=== PATIENT | female | born 1955 | race Caucasian/White ===

== ENCOUNTER 2017-12-19 22:47 | Emergency (ER) | payer MEDICARE, SELFPAY ==
[2017-12-19 22:48] VITALS: BP 160/106; PULSE 84; RESP 20; TEMP 36.7; O2SAT 93; BMI 41.9
[2017-12-19 23:27] LABS: Absolute Lymphocyte Count 2.51 X10^3/ul (0.83-4.51); Basophil# 0.05 X10^3/uL; Basophil% 0.7 % (0-1); Eosinophil# 0.11 X10^3/uL; Eosinophils% 1.5 % (0-5); Hematocrit 39.3 % (37-47); Hemoglobin 12.3 g/dl (12.0-15.0); Lymphocyte # 2.51 X10^3/ul (4.0); Lymphocyte % 34.4 % (19-41); Mean Corp Hgb Conc 31.3 g/gl (32-36); Mean Corpuscular Hgb 25.7 pg (27.0-32.0); Mean Corpuscular Volume 82.2 fL (81-99); Mean Platelet Vol. 11.2 fl (6.2-12.0); Monocyte# 0.56 X10^3/uL; Monocyte% 7.7 % (0-10); Neutrophil # 4.03 X10^3/uL (2.7-7.7); Neutrophil % 55.3 % (47-70); Platelet Count 308 K/mm3 (150-450); RBC Distribution Width SD 44.7 fl (35.1-43.9); Red Blood Count 4.78 M/mm3 (4.2-5.4); White Blood Count 7.3 K/mm3 (4.4-11.0)
[2017-12-19 23:31] LABS: International Normalized Ratio 0.9; POSITIVE COUNT NO; POSITIVE DIFFERENTIAL NO; POSITIVE MORPHOLOGY NO; Prothrombin Time (Protime)PT. 12.1 SECONDS (11.7-14.9)
[2017-12-19 23:32] LABS: Partial Thromboplast Time 29.3 Seconds (24.1-36.2)
[2017-12-19 23:37] LABS: Anion Gap 8 (5-15); BUN 17 mg/dL (7-18); BUN/Creat Ratio 17.3 RATIO (10-20); Calcium,Total 9.2 mg/dL (8.5-10.1); Chloride 105 mmol/L (98-107); Creatinine, Serum 0.98 mg/dL (0.55-1.02); EST Glomerular Filtration Rate 61 mL/min (>60); Est Glom Filt Rate - Afr Amer 74 mL/min (>60); Estimated Creatinine Clearance 45.49 ml/min; Glucose 101 mg/dL (74-106); Potassium 3.7 mmol/L (3.5-5.1); Sodium Level 144 mmol/L (136-145)
--- NOTE | 2017-12-19 23:40 | RAD_ITS ---
STUDY: X-RAY - ABDOMEN/PELVIS REASON FOR EXAM: Female, 62 years old. Documentation of nasogastric tube placement. TECHNIQUE: Three AP supine views of the abdomen and pelvis. COMPARISON: Prior comparison studies are not available for review at this time. FINDINGS: Normal visualized lung bases. There is an unremarkable bowel gas pattern. The enteric tube is present. Distal end appears to be coiled probably within a hiatal hernia in the chest. There is no obvious organomegaly, mass, dilated bowel or pathologic calcifications. Normal soft tissue structures. Normal visualized osseous structures. RAD/Abdomen Single View (Portable) IMPRESSION: The tip of the enteric tube is located in the chest, probably in a hiatal hernia. Electronically Signed: Flory Negrete MD at 0:08 EDT , Service support ,
--- NOTE | 2017-12-20 00:11 | ED.DCSUM_ITS ---
- ER Visit Summary Date of Service: 12/20/17 Chief Complaint: Vomiting ?3 with what appeared to be blood/coffee grounds History of Present Illness: The patient is a 62 F with history of peptic ulcer disease who presents with what she believes to be hematemesis and coffee grounds. She vomited 3 times. She denies any black or bloody stools. She denies orthostatic symptoms. She complains of heartburn. She denies any chest pain, palpitations or rapid heart rate. She denies cough, shortness of breath or dyspnea on exertion. She is on no antiplatelet or anticoagulant. She has no other complaints please read written note Patient has past history of peptic ulcer disease. She is status post cholecystectomy and thyroidectomy. Physical Examination: Vital signs are marked for an elevated blood pressure 160/ 100. She is not tachycardic or tachypneic. HEENT is unremarkable with pink conjunctivae. Heart is regular without murmur, gallop or rub. S1 and S2 are normal. Lungs are clear to auscultation with good movement of air bilaterally. Abdomen reveals minimal epigastric discomfort. Bowel sounds are present normal. She is alert oriented with a nonfocal neurologic exam. Test Results: CBC and BMP are normal. One expected elevated BUN to creatinine ratio. Coags are normal. NG was placed and there is no blood or coffee-ground material. There is gastric contact noted. Emergency Department Course and Treatment: To evaluate patient's complaint of possible hematemesis/coffee-ground emesis blood work was obtained and NG was placed. Abdominal x-ray reveals NG to be in proper position. Treatment Plan: Since patient has no active bleeding blood work is normal and she is hemodynamically stable to be discharged home to follow-up with Dr. Galarza Disposition: Discharged home Impression: Nausea and vomiting History of peptic ulcer disease This note was generated with [employer]um[employer] software. It may contain incorrect words, spelling, and punctuation that were not noted in review of the chart prior to signing ED Disposition - Plan for ED Patient: Disposition: Home or Assisted Living Chief Complaint: Nausea/Vomiting Instructions: ED Nausea Vomiting Referrals: Earl Galarza MD [Primary Care Provider] - As Needed
[2017-12-20] MEDS: Famotidine 20 MG Tablet 40 MG PO (00:35)
[2017-12-20 00:36] VITALS: BP 184/93; PULSE 74; RESP 16; O2SAT 100
== END 2017-12-20 00:37 | disposition home or self-care (01) ==
PROVIDERS: Emergency Provider Emergency Medicine; Family Provider Family Medicine; PCP Family Medicine
DX: R11.2 Nausea with vomiting, unspecified (principal); F41.9 Anxiety disorder, unspecified; I73.9 Peripheral vascular disease, unspecified; Z87.11 Personal history of peptic ulcer disease; Z90.49 Acquired absence of other specified parts of digestive tract; R03.0 Elevated blood-pressure reading, without diagnosis of hypertension; R12 Heartburn
CPT/HCPCS: 74018; 80048; 85025; 85610; 85730; 86850; 86900; 99285; A4216

== ENCOUNTER 2020-12-07 05:58 | Emergency (ER) | payer MEDICARE, MEDICAID, SELFPAY ==
[2020-12-07 06:00] VITALS: BP 194/94; PULSE 71; RESP 16; TEMP 36.6; O2SAT 99; BMI 47.9
--- NOTE | 2020-12-07 06:38 | ED.VIS.GEN ---
History of Present Illness Chief Complaint: Female C/O Informant: Patient Onset: Days Context: Gradual Onset Narrative: Patient is 65-year-old female with a history of degenerative disc disease presenting with worsening back pain as well as vaginal pressure and fullness. Patient states yesterday she carried in the groceries which she knows she is nonspecific because of her back. She is on meloxicam for it. She is having pain in her left lower back. She also notes that the past few days she has had fullness in her vagina. She states she feels like there is a bulge falling out. In addition she has had some associated constipation. She states she had a small hard bowel movement just prior to arrival. She has been straining to go. She denies any dysuria but has had some frequency of urination. She denies any saddle anesthesia. She denies any new incontinence. No weakness of the legs. No pain rating down her legs. No new injury. Patient woke up because of her back pain around 2:30 AM which is what triggered her to come to the emergency room. No other complaints at this time. Only abdominal surgery is a tubal ligation. Past Medical History - Allergies and Home Meds Allergies/Adverse Reactions: Allergies esomeprazole magnesium [From Nexium] Allergy (Verified 12/19/17 22:49) Rash fluconazole [From Diflucan] Allergy (Verified 12/19/17 22:49) Rash omeprazole [From Prilosec] Allergy (Verified 12/19/17 22:49) Rash omeprazole magnesium [From Prilosec] Allergy (Verified 12/19/17 22:49) Rash Primary Care Physician: Earl Galarza MD [Primary Care Provider] - Past Medical History: - - GERD, hypothyroid, hyperlipidemia, degenerative disc disease Surgical History: - - Tubal ligation Lives: Alone Smoking Status: Never smoker Review of Systems General: Denies: Chills, Fever, Sweats Eyes: Denies: Visual changes - bilaterally, Diplopia ENT: Denies: Rhinorrhea, Sore throat Cardiovascular: Denies: Chest pain, Palpitations Respiratory: Denies: Dyspnea, Cough, Dyspnea on exertion Gastrointestinal: Reports: Constipation. Denies: Abdominal pain, Nausea, Vomiting, Diarrhea, Melena, Hematochezia Genitourinary: Reports: Frequency, - - Vaginal pressure. Denies: Dysuria, Hematuria Musculoskeletal: Reports: Back pain. Denies: Extremity Pain Skin: Denies: Rash, Wounds Neurological: Denies: Headache, Weakness, Numbness Physical Exam Vital Signs/Narrative: Vital Signs Temp Pulse Resp BP Pulse Ox 12/07/20 06:00 97.9 F 71 16 194/94 H 99 Inital Vital Signs reviewed: Yes General: Well nourished, Well developed, Obese, No Acute Distress Head: Normocephalic, Atraumatic Eyes: Perrl, EOMI ENT: Moist mucous membranes, No rhinorrhea Neck: Supple, Nontender Cardiovascular: Regular rate, Regular rhythm, No murmurs Respiratory: No distress, CTA bilaterally, Chest nontender Abdomen: Soft, Nondistended, Normal bowel sounds, No masses, Tender - Suprapubic region. Negative for: Guarding, Rebound tenderness : - - Normal external genitalia. Patient does have what appears to be a rectocele that is noticeable with bearing down Back: Nontender, Normal Inspection, - - No reproducible tenderness but patient points to her right lower back as her area of pain. Negative for: CVA tenderness, Spinal tenderness Extremities: Nontender, No edema Skin: Normal color, No rash Neurological: Alert, Oriented x3, Cranial nerves II-XII grossly intact, Normal Strength, Normal Sensation Psychological: Normal affect, Normal Mood Diagnostic/Tx/Re-eval Clinical Impression(s) from Imaging Studies Abdomen/Pelvis CT 12/07/20 07:05 IMPRESSION: 6.9 mm calculus at the right ureteral vesicle junction causing mild degree of right hydronephrosis and right hydroureter. Electronically Signed: Gerardo Estrada MD at 8:06 EDT , Service support , Laboratory Data 12/07/20 12/07/20 12/07/20 06:20 06:27 06:27 WBC 6.7 RBC 5.11 Hgb 11.8 L Hct 41.1 MCV 80.4 L MCH 23.1 L MCHC 28.7 L RDW Std Deviation 48.9 H RDW Coeff of Glo 17.0 H Plt Count 294 MPV 11.7 Immature Gran % (Auto) 0.100 Neut % (Auto) 60.9 Lymph % (Auto) 30.5 [place] % (Auto) 6.1 Eos % (Auto) 1.5 Baso % (Auto) 0.9 Absolute Neuts (auto) 4.1 Absolute Lymphs (auto) 2.05 Nucleated RBC % 0 Sodium 140 Potassium 3.8 Chloride 109 H Carbon Dioxide 26.0 Anion Gap 5 BUN 14 Creatinine 1.06 H Estim Creat Clear Calc 38.51 Est GFR (MDRD) Af Amer 67 Est GFR (MDRD) Non-Af 55 L BUN/Creatinine Ratio 13.2 Glucose 131 H Calcium 9.1 Total Bilirubin 0.30 AST 12 L ALT 23 Alkaline Phosphatase 115 Total Protein 6.9 Albumin 3.5 Globulin 3.4 Albumin/Globulin Ratio 1.0 Urine Color Yellow Urine Clarity Clear Urine pH 5.0 Ur Specific [place] 1.030 Urine Protein 30 H Urine Glucose (UA) Normal Urine Ketones Negative Urine Occult Blood 50 H Urine Nitrite Negative Urine Bilirubin Negative Urine Urobilinogen Normal Ur Leukocyte Esterase 500 H Urine RBC 0-5 SEEN Urine WBC 10-25 SEEN Ur Squamous Epith Cells 0-5 SEEN Calcium Oxalate Crystal 1+ Urine Bacteria 0 SEEN Urine Mucus 0 SEEN - Medical Decision Making Patient evaluated for back pain as well as discomfort in her suprapubic region as well as a pressure in her vagina. She does have a mild rectocele on exam. Patient is given IV morphine for pain control. She states it made her sleepy but did not really help with the pain. She is redosed with Toradol. Urinalysis shows leukoesterase but no bacteria or blood. Given her abdominal pain as well as inflammatory changes in the urine I did obtain CT of the abdomen and pelvis. This showed a 6.9 mm stone at the right UVJ. This likely is the cause of all of her symptoms. CBC is largely unremarkable. Patient's creatinine is 1.06 which is her baseline. Glucose is mildly elevated at 131. No other acute intra-abdominal process is seen. Patient would like to be discharged home. She is discharged home with Flomax, pain control and nausea control. She is given follow-up with urology as well as gynecology for her vaginal fracture. Patient is counseled on signs and symptoms requiring return to the emergency room. Patient verbalizes agreement and understand this plan. Patient discharged home in stable and improved condition. ED Disposition - Plan for ED Patient: Disposition: Home or Assisted Living Diagnosis: Hydronephrosis with renal and ureteral calculous obstruction Instructions: ED Kidney Stone w/ Colic Prescriptions: Tamsulosin HCl [Flomax] 0.4 mg PO DAILY #7 capsule Prescription Printed Ibuprofen [Motrin] 600 mg PO Q6H PRN PRN #20 tab PRN Reason: Pain 1-10 Or Fever Prescription Printed Hydrocodone Bitart/Apap 5-325 [[place] 5MG-325MG] 1 tablet PO Q6H PRN PRN 3 Days #12 tab PRN Reason: Pain Prescription Printed Ondansetron [Zofran Odt] 4 mg PO Q8H PRN PRN #10 tablet PRN Reason: Nausea Prescription Printed Referrals: Earl Galarza MD [Primary Care Provider] - Ra Car MD [STAFF PHYSICIAN] - Jazz Singh MD [STAFF PHYSICIAN] - Additional Instructions: You have a kidney stone that is about to pass on the right side. This is the cause of your pain. No findings consistent with constipation on your CT. No signs of infection. You have been referred to a urologist, Dr. Car, for further follow-up of your kidney stone. Please call his office today to schedule follow-up appointment in the next few days. Your stone is 6.9 mm and it might require a procedure to get it to pass. In addition I referred you to gynecology on-call for further evaluation of your vaginal pressure/discomfort. Please return to the emergency room if you have worsening symptoms, fever or you cannot get your pain under control with the medications prescribed today.
[2020-12-07 06:41] LABS: Absolute Lymphocyte Count 2.05 X10^3/uL (0.83-4.51); Absolute Neutrophil Count 4.1 X10^3/uL (2.0-7.7); Basophil# 0.06 X10^3/uL; Basophil% 0.9 % (0-1); Eosinophils% 1.5 % (0-5); Hematocrit 41.1 % (37-47); Hemoglobin 11.8 g/dL (12.0-15.0); Lymphocyte # 2.05 X10^3/ul (4.0); Lymphocyte % 30.5 % (19-41); Mean Corp Hgb Conc 28.7 g/dL (32-36); Mean Corpuscular Hgb 23.1 pg (27.0-32.0); Mean Corpuscular Volume 80.4 fL (81-99); Mean Platelet Vol. 11.7 fl (6.2-12.0); Monocyte# 0.41 X10^3/uL; Monocyte% 6.1 % (0-10); NRBC Flagged by Analyzer 0 % (0-5); Neutrophil % 60.9 % (47-70); Platelet Count 294 K/mm3 (150-450); RBC Distribution Width SD 48.9 fl (35.1-43.9); Red Blood Count 5.11 M/mm3 (4.2-5.4); White Blood Count 6.7 K/mm3 (4.4-11.0)
[2020-12-07] MEDS: 0.9% Normal Saline 1,000 ML 1000 ML IV (06:48)
[2020-12-07] MEDS: Morphine 4 MG/ML Syringe IV (06:48)
[2020-12-07 06:51] LABS: Bacteria 0 SEEN /hpf (None Seen); Mucous, Urine 0 SEEN /hpf (<or=2+)
[2020-12-07 06:53] LABS: Color, Urine Yellow (Yellow); Glucose, Dipstick Normal (Normal); Ketone-Dipstick Negative (Negative); Leukocyte Esterase-Dipstick 500 /ul (Negative); Nitrite-Dipstick Negative (Negative); Occult Blood-Urine 50 /ul (Negative); Protein-Dipstick 30 mg/dl (Negative); Urine Bilirubin Dipstick Negative (Negative); Urine Clarity Clear (Clear); Urine Urobilinogen Normal (Normal)
[2020-12-07 06:54] LABS: AST(SGOT) 12 U/L (15-37); Alanine Aminotransfer ALT/SGPT 23 U/L (13-56); Albumin, Serum 3.5 g/dL (3.2-5.0); Alkaline Phosphatase 115 U/L (45-117); Anion Gap 5 (5-15); BUN 14 mg/dL (7-18); BUN/Creat Ratio 13.2 RATIO (10-20); Calcium,Total 9.1 mg/dL (8.5-10.1); Chloride 109 mmol/L (98-107); Creatinine, Serum 1.06 mg/dL (0.55-1.02); EST Glomerular Filtration Rate 55 mL/min (>60); Est Glom Filt Rate - Afr Amer 67 mL/min (>60); Estimated Creatinine Clearance 38.51 ml/min; Globulin 3.4 g/dL (2.2-4.2); Glucose 131 mg/dL (74-106); Potassium 3.8 mmol/L (3.5-5.1); Protein, Total 6.9 g/dL (6.4-8.2); Sodium Level 140 mmol/L (136-145)
[2020-12-07 06:57] LABS: Calcium Oxalate Crystals Ur 1+ /hpf (<or=2+); Red Blood Cells-Urine 0-5 SEEN /hpf (0-5); Squamous Epithelial Cells - UA 0-5 SEEN /hpf (5-10); White Blood Cells 10-25 SEEN /hpf (0-5)
--- NOTE | 2020-12-07 07:05 | CT_ITS ---
STUDY: CT ABDOMEN AND PELVIS WITH CONTRAST REASON FOR EXAM: Fatty infiltration of the liver. Status post cholecystectomy. Moderate sized hiatal hernia., 65 years old. Abdominal pain. Pelvic pressure. RADIATION DOSAGE (If Supplied By Facility): CTDIvol = ( 15.29 ) mGy, DLP = ( 1246.14 ) mGycm TECHNIQUE: Transaxial images were obtained from the dome of the diaphragm to the symphysis pubis without oral contrast. IV 100mL Isovue-300 was administered. Sagittal and coronal images were reconstructed. Individualized dose optimization techniques were used for this CT. COMPARISON: None. FINDINGS: Mild degree of increased markings at the lung bases slightly more prominent on the left side. The visualized portions of the heart are within normal limits. There is decreased attenuation of the liver consistent with steatosis. Mild degree of intrabiliary air in the left biliary radicals most likely secondary to the prior cholecystectomy. The patient is status post cholecystectomy. Normal spleen. There is diffuse atrophy of the pancreas. Normal bilateral adrenal glands. There is a mild degree of a right hydronephrosis and right hydroureter due to a 6.9 mm calculus at the right ureterovesical junction. Normal left kidney. There is a moderate-sized hiatal hernia. Normal small intestine. There are multiple colonic diverticula consistent with diverticulosis. The appendix is visualized and appears normal. There is scattered atherosclerotic calcification of the abdominal aorta, without a demonstrated aneurysm. Normal inferior vena cava. Normal retroperitoneum. Normal urinary bladder. Normal abdominal wall. There are diffuse degenerative changes of the visualized lumbar spine. CT/Abdomen/Pelvis W IV Cont ONLY IMPRESSION: 6.9 mm calculus at the right ureteral vesicle junction causing mild degree of right hydronephrosis and right hydroureter. Electronically Signed: Gerardo Estrada MD at 8:06 EDT , Service support ,
[2020-12-07] MEDS: Ketorolac 15 MG/ML Vial IV (07:53)
[2020-12-07 08:31] VITALS: BP 181/98; PULSE 72; RESP 16; O2SAT 96
== END 2020-12-07 08:34 | disposition home or self-care (01) ==
PROVIDERS: Emergency Provider Emergency Medicine; PCP Family Medicine
DX: N13.2 Hydronephrosis with renal and ureteral calculous obstruction (principal); N81.6 Rectocele; K21.9 Gastro-esophageal reflux disease without esophagitis; E03.9 Hypothyroidism, unspecified; E78.5 Hyperlipidemia, unspecified; Z88.3 Allergy status to other anti-infective agents; Z90.49 Acquired absence of other specified parts of digestive tract
CPT/HCPCS: 74177; 80053; 81001; 85025; 96361; 96374; 96375; 99283; J7030; Q9967; A4216

== ENCOUNTER 2020-12-08 10:44 | Day surgery (SDC) | payer MEDICARE, MEDICAID, SELFPAY ==
[2020-12-07 06:00] VITALS: BMI 47.9
[2020-12-08] VITALS (7 sets, daily range): BP systolic 106–178; BP diastolic 72–99; PULSE 65–87; RESP 16–18; TEMP 35.4–36.6; O2SAT 94–98; BMI 48.1
--- NOTE | 2020-12-08 11:07 | ED.VIS.GEN ---
History of Present Illness Chief Complaint: Flank Pain Informant: Patient Narrative: 65-year-old female presents to the emergency department with right flank and abdominal pain. She states that yesterday she was diagnosed with a 6.9 mm kidney stone. Review of the CT shows that it is a 6.9 mm UVJ stone. She states that she was doing okay with the pain medication to this morning when the pain intensified. She states that she feels extremely nauseous. She states she called urology and was told that they do not take her Medicaid. She tells me that she was going to try to call somebody else but the pain was worse. Past Medical History - Allergies and Home Meds Allergies/Adverse Reactions: Allergies esomeprazole magnesium [From Nexium] Allergy (Verified 12/08/20 10:45) Rash fluconazole [From Diflucan] Allergy (Verified 12/08/20 10:45) Rash omeprazole [From Prilosec] Allergy (Verified 12/08/20 10:45) Rash omeprazole magnesium [From Prilosec] Allergy (Verified 12/08/20 10:45) Rash Primary Care Physician: Earl Galarza MD [Primary Care Provider] - Past Medical History: - - Hypothyroidism dyslipidemia Surgical History: - - Tubal ligation Smoking Status: Never smoker Drugs: None Review of Systems General: Denies: Chills, Fever, Sweats Eyes: Denies: Visual changes - bilaterally, Diplopia ENT: Denies: Rhinorrhea, Sore throat Cardiovascular: Denies: Chest pain, Palpitations Respiratory: Denies: Dyspnea, Cough, Dyspnea on exertion Gastrointestinal: Reports: Abdominal pain. Denies: Nausea, Vomiting, Diarrhea, Melena, Hematochezia Genitourinary: Denies: Dysuria, Hematuria, Frequency Musculoskeletal: Reports: Back pain. Denies: Extremity Pain Skin: Denies: Rash, Wounds Neurological: Denies: Headache, Weakness, Numbness Physical Exam Vital Signs/Narrative: Vital Signs Temp Pulse Resp BP Pulse Ox 12/08/20 10:45 95.8 F L 87 18 168/99 H 98 Inital Vital Signs reviewed: Yes General: Obese, - - Patient appears uncomfortable pacing the floor holding an emesis bag Head: Normocephalic, Atraumatic Eyes: Perrl, EOMI ENT: Moist mucous membranes, No rhinorrhea Neck: Supple, Nontender Cardiovascular: Regular rate, Regular rhythm, No murmurs Respiratory: No distress, CTA bilaterally, Chest nontender Abdomen: Soft, Nontender, Nondistended, Normal bowel sounds Back: Nontender, Normal Inspection Extremities: Nontender, No edema Skin: Normal color, No rash Neurological: Alert, Oriented x3, Cranial nerves II-XII grossly intact, Normal Strength, Normal Sensation Psychological: Normal affect, Normal Mood Diagnostic/Tx/Re-eval Laboratory Last Values WBC 5.9 K/mm3 (4.4-11.0) 12/08/20 11:25 RBC 4.96 M/mm3 (4.2-5.4) 12/08/20 11:25 Hgb 11.8 g/dL (12.0-15.0) L 12/08/20 11:25 Hct 39.6 % (37-47) 12/08/20 11:25 MCV 79.8 fL (81-99) L 12/08/20 11:25 MCH 23.8 pg (27.0-32.0) L 12/08/20 11:25 MCHC 29.8 g/dL (32-36) L 12/08/20 11:25 RDW Std Deviation 47.7 fl (35.1-43.9) H 12/08/20 11:25 RDW Coeff of Glo 16.7 % (11.6-14.6) H 12/08/20 11:25 Plt Count 281 K/mm3 (150-450) 12/08/20 11:25 MPV 11.0 fl (6.2-12.0) 12/08/20 11:25 Immature Gran % (Auto) 0.200 % (0.0-0.9) 12/08/20 11:25 Neut % (Auto) 63.3 % (47-70) 12/08/20 11:25 Lymph % (Auto) 28.8 % (19-41) 12/08/20 11:25 [place] % (Auto) 5.7 % (0-10) 12/08/20 11:25 Eos % (Auto) 1.2 % (0-5) 12/08/20 11:25 Baso % (Auto) 0.8 % (0-1) 12/08/20 11:25 Absolute Neuts (auto) 3.8 X10^3/uL (2.0-7.7) 12/08/20 11:25 Absolute Lymphs (auto) 1.71 X10^3/uL (0.83-4.51) 12/08/20 11:25 Nucleated RBC % 0 % (0-5) 12/08/20 11:25 Sodium 137 mmol/L (136-145) 12/08/20 11:25 Potassium 4.2 mmol/L (3.5-5.1) 12/08/20 11:25 Chloride 107 mmol/L (98-107) 12/08/20 11:25 Carbon Dioxide 23.0 mmol/L (21.0-32.0) 12/08/20 11:25 Anion Gap 7 (5-15) 12/08/20 11:25 BUN 13 mg/dL (7-18) 12/08/20 11:25 Creatinine 1.06 mg/dL (0.55-1.02) H 12/08/20 11:25 Estim Creat Clear Calc 38.51 ml/min 12/08/20 11:25 Est GFR (MDRD) Af Amer 67 mL/min (>60) 12/08/20 11:25 Est GFR (MDRD) Non-Af 55 mL/min (>60) L 12/08/20 11:25 BUN/Creatinine Ratio 12.3 RATIO (10-20) 12/08/20 11:25 Glucose 134 mg/dL (74-106) H 12/08/20 11:25 Calcium 8.9 mg/dL (8.5-10.1) 12/08/20 11:25 Urine Color Straw (Yellow) 12/08/20 12:09 Urine Clarity Sl. Cloudy (Clear) 12/08/20 12:09 Urine pH 5.0 (5.0 - 8.0) 12/08/20 12:09 Ur Specific [place] 1.030 (1.002-1.030) 12/08/20 12:09 Urine Protein 30 mg/dl (Negative) H 12/08/20 12:09 Urine Glucose (UA) Normal mg/dl (Normal) 12/08/20 12:09 Urine Ketones 5 mg/dl (Negative) H 12/08/20 12:09 Urine Occult Blood 25 /ul (Negative) H 12/08/20 12:09 Urine Nitrite Negative (Negative) 12/08/20 12:09 Urine Bilirubin 1 mg/dL (Negative) H 12/08/20 12:09 Urine Urobilinogen Normal mg/dl (Normal) 12/08/20 12:09 Ur Leukocyte Esterase 100 /ul (Negative) H 12/08/20 12:09 Urine RBC 0 SEEN /hpf (0-5) 12/08/20 12:09 Urine WBC 0-5 SEEN /hpf (0-5) 12/08/20 12:09 Ur Squamous Epith Cells 0-5 SEEN /hpf (5-10) 12/08/20 12:09 Ur Renal Epithelial Cell 0-5 SEEN /hpf (0-5) 12/08/20 12:09 Calcium Oxalate Crystal 2+ /hpf (<or=2+) 12/08/20 12:09 Amorphous Sediment 1+ 12/08/20 12:09 Urine Bacteria 1+ /hpf (None Seen) 12/08/20 12:09 Hyaline Casts 0-5 SEEN /lpf (0-5) 12/08/20 12:09 Urine Mucus 0 SEEN /hpf (<or=2+) 12/08/20 12:09 - Medical Decision Making White count is normal. Creatinine stable. Urinalysis negative for infection. Patient received morphine and Zofran. She is remained n.p.o. Her last solid food was last evening around 1700 hrs. and her last drink of water was around 1030 hours this morning. I spoke with Dr. Car who will add the patient onto the operating room schedule today. ED Disposition - Plan for ED Patient: Disposition: Acute Care Hospital [facility] Diagnosis: Right ureteral stone Referrals: Earl Galarza MD [Primary Care Provider] -
[2020-12-08 11:33] LABS: Absolute Lymphocyte Count 1.71 X10^3/uL (0.83-4.51); Absolute Neutrophil Count 3.8 X10^3/uL (2.0-7.7); Basophil# 0.05 X10^3/uL; Basophil% 0.8 % (0-1); Eosinophil# 0.07 X10^3/uL; Eosinophils% 1.2 % (0-5); Hematocrit 39.6 % (37-47); Hemoglobin 11.8 g/dL (12.0-15.0); Lymphocyte # 1.71 X10^3/ul (4.0); Lymphocyte % 28.8 % (19-41); Mean Corp Hgb Conc 29.8 g/dL (32-36); Mean Corpuscular Hgb 23.8 pg (27.0-32.0); Mean Corpuscular Volume 79.8 fL (81-99); Monocyte# 0.34 X10^3/uL; Monocyte% 5.7 % (0-10); NRBC Flagged by Analyzer 0 % (0-5); Neutrophil # 3.76 X10^3/uL (2.7-7.7); Neutrophil % 63.3 % (47-70); Platelet Count 281 K/mm3 (150-450); RBC Distribution Width CV 16.7 % (11.6-14.6); RBC Distribution Width SD 47.7 fl (35.1-43.9); Red Blood Count 4.96 M/mm3 (4.2-5.4); White Blood Count 5.9 K/mm3 (4.4-11.0)
[2020-12-08] MEDS: Ketorolac 15 MG/ML Vial IV (11:33)
[2020-12-08] MEDS: Morphine 4 MG/ML Syringe IV (11:33)
[2020-12-08] MEDS: Ondansetron 4 MG/2 ML Vial IV (11:33)
[2020-12-08] MEDS: 0.9% Normal Saline 1,000 ML 250 ML IV (11:34)
[2020-12-08 11:50] LABS: Anion Gap 7 (5-15); BUN 13 mg/dL (7-18); BUN/Creat Ratio 12.3 RATIO (10-20); Calcium,Total 8.9 mg/dL (8.5-10.1); Chloride 107 mmol/L (98-107); Creatinine, Serum 1.06 mg/dL (0.55-1.02); EST Glomerular Filtration Rate 55 mL/min (>60); Est Glom Filt Rate - Afr Amer 67 mL/min (>60); Estimated Creatinine Clearance 38.51 ml/min; Glucose 134 mg/dL (74-106); Potassium 4.2 mmol/L (3.5-5.1); Sodium Level 137 mmol/L (136-145)
[2020-12-08 12:17] LABS: Mucous, Urine 0 SEEN /hpf (<or=2+); Red Blood Cells-Urine 0 SEEN /hpf (0-5)
[2020-12-08 12:19] LABS: Color, Urine Straw (Yellow); Glucose, Dipstick Normal (Normal); Ketone-Dipstick 5 mg/dl (Negative); Leukocyte Esterase-Dipstick 100 /ul (Negative); Nitrite-Dipstick Negative (Negative); Occult Blood-Urine 25 /ul (Negative); Protein-Dipstick 30 mg/dl (Negative); Urine Clarity Sl. Cloudy (Clear); Urine Urobilinogen Normal (Normal)
[2020-12-08 12:20] LABS: Urine Bilirubin Dipstick 1 mg/dL (Negative)
[2020-12-08 12:28] LABS: Amorphous Sediment 1+; Bacteria 1+ /hpf (None Seen); Calcium Oxalate Crystals Ur 2+ /hpf (<or=2+); Hyaline Cast 0-5 SEEN /lpf (0-5); Renal Epithelial Cells 0-5 SEEN /hpf (0-5); Squamous Epithelial Cells - UA 0-5 SEEN /hpf (5-10); White Blood Cells 0-5 SEEN /hpf (0-5)
--- NOTE | 2020-12-08 14:43 | PCM.HP.STD ---
Problem List (1) Right ureteral stone Status: Acute History of Present Illness Date of Admission: 12/08/20 Chief Complaint: Right obstructing ureteral calculi The patient is a 65 year old female who presented a second time to the emergency room in severe pain from a distal large ureteral calculi so I offered the patient surgery and she is agreed to undergo surgery she understands there is a risk of injury to the ureter failure to get the stone out and needing more than 1 surgical procedure, failure to remove the stone and needing more surgery, she also understands the stent that Lizeth put in may cause a lot of irritation of the bladder pain discomfort pain with urination and burning with urination we will give her medications to deal with the stent the bladder discomfort and today working to proceed with surgery all her questions were addressed in the preoperative area. And she signed the consent form. We went over the consent form in detail. Past Medical History Allergies esomeprazole magnesium [From Nexium] Allergy (Verified 12/08/20 10:45) Rash fluconazole [From Diflucan] Allergy (Verified 12/08/20 10:45) Rash omeprazole [From Prilosec] Allergy (Verified 12/08/20 10:45) Rash omeprazole magnesium [From Prilosec] Allergy (Verified 12/08/20 10:45) Rash Home Medications: Ambulatory Orders Medication Instructions Recorded Acetaminophen [Tylenol] 500 mg PO Q8H PRN PRN 10/09/13 Levothyroxine [Synthroid] 150 mcg PO DAILY 10/09/13 Colesevelam Hydrochloride [Welchol] 3,750 mg PO DAILY@0800 12/16/15 Dexlansoprazole [Dexilant] 30 mg PO DAILY 12/19/17 Hydrocodone Bitart/Apap 5-325 1 tablet PO Q6H PRN PRN 3 Days #12 12/07/20 [[place] 5MG-325MG] tab Ibuprofen [Motrin] 600 mg PO Q6H PRN PRN #20 tab 12/07/20 Ondansetron [Zofran Odt] 4 mg PO Q8H PRN PRN #10 tablet 12/07/20 Tamsulosin HCl [Flomax] 0.4 mg PO DAILY #7 capsule 12/07/20 Surgical History: - - Tubal ligation Smoking Status: Former smoker Drugs: None Review of Systems Constitutional: Denies: Chills, Fever, Weight Change HEENT: Denies: Head Aches, Sinus Congestion, Sinus Drainage Cardiovascular: Denies: Chest Pain, Palpitations Respiratory: Denies: Cough, Shortness of breath at rest, Sputum production Gastrointestinal: Denies: Abdominal Pain, Nausea, Vomiting Genitourinary: Denies: Dysuria Musculoskeletal: Denies: Joint Pain, Joint Tenderness Skin: Denies: Rash, Wounds Neurological: Denies: Numbness, Tingling, Focal weakness Psychiatric: Denies: Anxiety, Depression, Homicidal Ideations, Suicidal Ideations Hematologic/ Lymphatic: Denies: Easy Bruising, Easy Bleeding VTE Information - Inpt Only VTE Present on Admission: No VTE Mechan Device Prophylaxis: SCD's Patient Problems: Active and Suspected Problems Right ureteral stone (Acute) - Physical Exam Vitals/I&O's: Vital Signs Temp Pulse Resp BP Pulse Ox 97.5 F L 65 18 178/76 H 98 12/08/20 13:00 12/08/20 13:00 12/08/20 13:00 12/08/20 13:00 12/08/20 13:00 Oxygen Delivery Method Room Air Weight: 111.8 kg Body Mass Index (BMI) 48.1 Intake and Output for Last 24 Hours 12/06/20 12/07/20 12/08/20 23:59 23:59 23:59 Intake Total 1000 / 1000 Balance 1000 / 1000 General: Alert, Oriented x3, Cooperative HEENT: Atraumatic, PERRLA, EOMI, Normocephalic Neck: Supple, No JVD, Negative Carotid Bruits Lungs: Clear to auscultation, Normal air movement Cardiovascular: Regular rate, No murmurs Abdomen: Bowel Sounds Present, Soft, Non Tender Extremities: No edema, Capillary Refill Less than 3 Seconds Skin: No rashes, No breakdown Musculoskeletal: No Tenderness to Palpation of Joints or Extremities Neurological: Cranial nerves II-XII grossly intact Psych/Mental Status: Normal Affect, Appropriate Laboratory Results 12/08/20 11:25: WBC 5.9, RBC 4.96, Hgb 11.8 L, Hct 39.6, MCV 79.8 L, MCH 23.8 L, MCHC 29.8 L, RDW Std Deviation 47.7 H, RDW Coeff of Glo 16.7 H, Plt Count 281, MPV 11.0, Immature Gran % (Auto) 0.200, Neut % (Auto) 63.3, Lymph % (Auto) 28.8, [place] % (Auto) 5.7, Eos % (Auto) 1.2, Baso % (Auto) 0.8, Absolute Neuts (auto) 3.8, Absolute Lymphs (auto) 1.71, Nucleated RBC % 0 12/08/20 11:25: Sodium 137, Potassium 4.2, Chloride 107, Carbon Dioxide 23.0, Anion Gap 7, BUN 13, Creatinine 1.06 H, Estim Creat Clear Calc 38.51, Est GFR (MDRD) Af Amer 67, Est GFR (MDRD) Non-Af 55 L, BUN/Creatinine Ratio 12.3, Glucose 134 H, Calcium 8.9 12/08/20 12:09: Urine Color Straw, Urine Clarity Sl. Cloudy, Urine pH 5.0, Ur Specific [place] 1.030, Urine Protein 30 H, Urine Glucose (UA) Normal, Urine Ketones 5 H, Urine Occult Blood 25 H, Urine Nitrite Negative, Urine Bilirubin 1 H, Urine Urobilinogen Normal, Ur Leukocyte Esterase 100 H, Urine RBC 0 SEEN, Urine WBC 0-5 SEEN, Ur Squamous Epith Cells 0-5 SEEN, Ur Renal Epithelial Cell 0-5 SEEN, Calcium Oxalate Crystal 2+, Amorphous Sediment 1+, Urine Bacteria 1+, Hyaline Casts 0-5 SEEN, Urine Mucus 0 SEEN Current Medications Sodium Chloride () 1,000 mls @ 250 mls/hr IV .Q4H [facility] Last Infusion: 12/08/20 14:33 Dose: Infused Documented by: Lactated Ringer's () 1,000 mls @ 100 mls/hr IV .Q10H [facility] Assessment/Plan All Active Problems Right ureteral stone (Acute) Plan to proceed with right ureteroscopy laser of stone and stent placement.
--- NOTE | 2020-12-08 14:46 | DCINST_ITS ---
Discharge Diet: No Restrictions Discharge Activity: Return to Normal Activity, May Not Drive - for 2 days. Additional Activity Instructions:: Please be aware that pain medications may cause nausea. You should typically eat light foods as you take your pain medication. Pain medication may cause constipation, if this is a problem for you, please discuss with your doctor. Allergies/Adverse Reactions: Allergies esomeprazole magnesium [From Nexium] Allergy (Verified 12/08/20 10:45) Rash fluconazole [From Diflucan] Allergy (Verified 12/08/20 10:45) Rash omeprazole [From Prilosec] Allergy (Verified 12/08/20 10:45) Rash omeprazole magnesium [From Prilosec] Allergy (Verified 12/08/20 10:45) Rash Medications to take at Discharge Acetaminophen [Tylenol] 500 mg PO Q8H PRN PRN 10/09/13 Levothyroxine [Synthroid] 150 mcg PO DAILY 10/09/13 Colesevelam Hydrochloride [Welchol] 3,750 mg PO DAILY@0800 12/16/15 Dexlansoprazole [Dexilant] 30 mg PO DAILY 12/19/17 Hydrocodone Bitart/Apap 5-325 [[place] 5MG-325MG] 1 tablet PO Q6H PRN PRN 3 Days #12 tab 12/07/20 Ibuprofen [Motrin] 600 mg PO Q6H PRN PRN #20 tab 12/07/20 Ondansetron [Zofran Odt] 4 mg PO Q8H PRN PRN #10 tablet 12/07/20 Tamsulosin HCl [Flomax] 0.4 mg PO DAILY #7 capsule 12/07/20 Ciprofloxacin [Cipro] 500 mg PO BID #10 tab 12/08/20 The following prescriptions were given: Ciprofloxacin [Cipro] 500 mg PO BID #10 tab Transmission Status: Pending to [facility] Primary Care Physician: Earl Galarza MD [Primary Care Provider] - Test Results: Test results from this visit will be discussed in further detail at your follow- up appointment, if applicable. Please Follow Up With: Ra Car MD - [phone] When: in 2 weeks, please call to make an appointment.
[2020-12-08] MEDS: Cefazolin 2 GM in 0.9% Normal Saline 100 ML IV (15:10)
--- NOTE | 2020-12-08 16:41 | OP.PCM_ITS ---
Problem List (1) Right ureteral stone Status: Acute Report of Operation Date of Procedure: 12/08/20 Pre-Operative Diagnosis: Right distal ureteral calculi Post-Operative Diagnosis: Same Surgery/Procedure Performed:: Cystoscopy, balloon dilation of right ureter, right retrograde pyelogram, right ureteroscopy laser lithotripsy of stone in distal ureter, and right stent placement. Description of Surgical Findings:: This is a patient who presents to the hospital for treatment for an obstructing distal ureter calculi. I discussed with the patient how the surgery would be performed and we reviewed the risks and benefits of the surgery. The risk and benefits include the risk of failure to remove the stone completely and that the patient may need multiple procedures. We discussed the risk of an infection, the risk of bleeding. We discussed the very rare risk of serious complicated injury to the ureter. The patient understands that if the stone is not able to be removed safely that we may abort the procedure and place a stent. After full discussion and all questions address with the patient the consent form was signed the side was marked appropriately and the patient was taken back to the operating room for the procedure. The patient was taken back to the operating room. After induction of anesthesia by the anesthesiology team the patient was placed in dorsolithotomy position. The genitals were prepped and draped in usual sterile fashion. I went into the bladder with a 21 Malagasy rigid cystourethroscope through the urethra. Upon entering the bladder I inspected the trigone the left and right ureteral orifice and the bladder itself. I then cannulated the right ureteral orifice and advanced a 0.038 Glidewire up into the kidney. Then over the Glidewire I adva nced a 5 Fr Ureteral catheter and performed a retrograde pyelogram with about 10cc of contrast, to delineate the anatomy and identify the stone location. Then a ureteral balloon dilator was advanced over the wire and the distal ureter was balloon dilated with a 12 Fr x 5cm balloon dilator. After 3 minutes of dilating the ureter the balloon was backloaded off the 0.038 glidewire then the safety wire was left in place. I then placed a second 0.038 Guidewire as a working wire and over the working 0.038 guidewire I went in with the jacob rigide 7.5fr ureteroscope. I was able to go inside with the 7.5Fr jacob rigid utereroscope and I pulled out the working guidewire and then through the 7.5 fr simirigid ureteroscope I engage the stone in the distal ureter with laser lithotripsy using a 270miron laser fiber with energy setting of 6 Hertz and 0.6 J until the stone was lasered into tiny little pieces that should pass on their own. A retrograde pyelogram was performed with 10cc of contrast and no extravasation of contrast or perforation was identified in the ureter there was some mild irritation of the ureter where the stone was located. I then backed out of the ureter left the wire in place and then over the 0.038 guidewire I placed a double coiled pigtail ureteral stent. The ureteral stent was advanced over the 0.038 guidewire under direct fluoroscopic guidance and direct cystosc opic visual guidance, once the stent was in good position I pulled the wire and the stent coiled in the kidney and bladder in good position. I then drained the patient's bladder and the cystoscope was removed and the patient was taken back to the recovery room in good position. The patient was given discharge instructions to call the office for instructions on when to come to the office to have the stent removed. Type of Anesthesia:: General Drains: stent 6fr x 24 cm with string - Admit VTE Documentation VTE Present on Admission: No VTE Mechan Device Prophylaxis: SCD's
== END 2020-12-08 18:32 | disposition short-term general hospital (02) ==
LOC: ED 12:54 → MS3 13:15 → SDC 16:55
PROVIDERS: Urology; PCP Family Medicine; Visit Provider Emergency Medicine
PROC: (CPT 52353; principal; 2020-12-08 15:15)
DX: N20.1 Calculus of ureter (principal); E03.9 Hypothyroidism, unspecified; E78.5 Hyperlipidemia, unspecified; Z88.3 Allergy status to other anti-infective agents; Z87.891 Personal history of nicotine dependence
CPT/HCPCS: 52344; 52356; 76000; 80048; 81001; 85025; 87426; J7120; C1769; C2617; J2405

== ENCOUNTER → 2021-01-25 16:02 | Outpatient (CLI) | payer MEDICARE, MEDICAID, SELFPAY ==
[2020-12-08 10:45] VITALS: BMI 48.1
[2021-01-25 17:35] LABS: Anion Gap 5 (5-15); BUN 18 mg/dL (7-18); BUN/Creat Ratio 18.3 RATIO (10-20); Calcium,Total 9.1 mg/dL (8.5-10.1); Chloride 112 mmol/L (98-107); Creatinine, Serum 0.98 mg/dL (0.55-1.02); EST Glomerular Filtration Rate 61 mL/min (>60); Est Glom Filt Rate - Afr Amer 73 mL/min (>60); Glucose 142 mg/dL (74-106); Sodium Level 143 mmol/L (136-145)
== END ==
PROVIDERS: PCP Family Medicine; Referring Provider Urology; Visit Provider Urology
DX: Z87.442 Personal history of urinary calculi (principal)
CPT/HCPCS: 36415; 80048

== ENCOUNTER → 2021-02-09 15:38 | Outpatient (CLI) | payer MEDICAID, SELFPAY ==
[2020-12-08 10:45] VITALS: BMI 48.1
--- NOTE | 2021-02-09 | CER_PTH ---
PATIENT: SABINE DAMON [facility]: [facility] U#:[id number] AGE/SX: 70/F ROOM: RE02/09/[address]: Dr. Mitch Rivero MD : [id number] BED: DIS: SPEC #: [id number] RECD: 02/09/21 15:00 STATUS: ALEX ADELINE #: [id number] MARIBEL: 02/09/21 00:[address]: Mitch Rivero DEPT: SURGICAL PATHOLOGY RECD BY: Alan Mendoza ENTERED: 02/10/21 07:47 SP TYPE: CERV OTHR DR: Dr. Earl Galarza MD Tissues: Uterine cervix, NOS Procedures: Surgery Specimen Level IV HEADER OPERATION: Removal cervical polyp PRE-OP DIAGNOSIS: N84.1 TISSUE SUBMITTED: Cervical polyp MICROSCOPIC DIAGNOSIS Cervical polyp, biopsy: Benign endocervical polyp. SJ:kala 02/11/2021 MICROSCOPIC DESCRIPTION Slides are reviewed. GROSS DESCRIPTION Received in fixative is one container labeled with the patient's name and designated cervical polyp. The specimen consists of multiple irregular fragments of moreno mucoid tissue that in aggregate measure 1.5 x 1 x 0.3 cm. The specimen is totally submitted in one cassette. / SJ:kala 02/10/21 TC:5 CPT: 84336
[2021-02-15 10:54] LABS: HPV Reflexed? NOT INDICATED
== END ==
PROVIDERS: PCP Family Medicine; Visit Provider Obstetrics & Gynecology
DX: Z12.4 Encounter for screening for malignant neoplasm of cervix (principal); N84.1 Polyp of cervix uteri
CPT/HCPCS: 88175; 88305; G0145